=== PATIENT | female | born 1940 | race Hispanic/Latino ===

== ENCOUNTER 2017-01-04 07:56 | Day surgery (SDC) | payer MEDICARE ==
[2017-01-01 13:58] VITALS: BMI 27.8
[2017-01-04] MEDS ORDERED: Propofol 10 mg/ml Inj (20 ML) ONE (09:32)
[2017-01-04] MEDS ORDERED: Lidocaine 2% Inj (20ml) ONE (09:32)
[2017-01-04] MEDS ORDERED: Sodium Chloride 0.9% 1,000 ML IV SCH ×2 (09:45→10:15)
[2017-01-04 11:15] VITALS: BP 121/65; PULSE 75; RESP 18; TEMP 97.6; O2SAT 97
== END 2017-01-04 11:31 | disposition home or self-care (01) ==
LOC: ENDO 07:56
PROVIDERS: ATTEND Specialist
DX: K57.30 Diverticulosis of large intestine without perforation or abscess without bleeding (principal); K64.8 Other hemorrhoids
CPT/HCPCS: 45378; J2704; J7040 ×2